=== PATIENT | female | born 1970 | race Hispanic/Latino ===

== ENCOUNTER 2021-07-23 07:01 | Inpatient (IN) | payer OTHER ==
[~2021-07-23] VITALS: Ht 157.5 cm; Wt 93.0 kg
[~2021-07-23 07:01] MED LIST: AMOX TR-K CLV1 EAC2 PO; QUINAPRIL HCL10 MG PO
[2021-07-23] MEDS ORDERED: KETOROLAC TROMETHAMINE 30 MG/ML VIAL IV STA (07:26)
[2021-07-23] MEDS ORDERED: Morphine 2mg Syringe 2 MG/ML SYR IV STA (07:26)
[2021-07-23] MEDS ORDERED: ONDANSETRON HCL INJ 2MG/ML 2ML 2 MG/ML VIAL IV STA ×2 (07:26→08:47)
[2021-07-23] MEDS ORDERED: SODIUM CHLORIDE 0.9% 1000ML 1,000 ML IV STA (07:26)
[2021-07-23 07:50] LABS: BASOPHILS # (AUTO) 0.1 (0.0-0.1); BASOPHILS % 0.8 % (0.0-1.0); EOSINOPHILS # (AUTO) 0.5 (0.0-0.4); EOSINOPHILS % 3.6 % (0.0-6.0); HEMATOCRIT 46.3 % (34.2-44.1); HEMOGLOBIN 14.9 g/dL (12.0-16.0); LYMPHOCYTES # (AUTO) 3.7 (1.0-3.2); LYMPHOCYTES % 28.3 % (18.0-39.1); MEAN CORPUSCULAR HGB CONC 32.2 g/dL (31-35); MEAN CORPUSCULAR VOLUME 90.1 fL (81-99); MONOCYTES # (AUTO) 0.8 (0.2-0.8); MONOCYTES % 5.8 % (4.4-11.3); NEUTROPHILS # (AUTO) 7.9 (2.1-6.9); NEUTROPHILS % 61.3 % (38.7-80.0); PLATELET COUNT 429 x10e3/uL (140-360); RED BLOOD COUNT 5.14 x10e6/uL (3.6-5.1); RED CELL DISTRIBUTION WIDTH 13.3 % (11.7-14.4)
[2021-07-23 08:02] LABS: BACTERIA,URINE FEW /HPF; CLARITY,URINE TURBID (CLEAR); COLOR,URINE BROWN (YELLOW); EPITHELIAL CELLS,URINE FEW /LPF; KETONES,URINE NEGATIVE (NEGATIVE); LEUKOCYTE ESTERASE ,URINE NEGATIVE (NEGATIVE); NITRITE,URINE NEGATIVE (NEGATIVE); PROTEIN,URINE DIPSTICK 2+ (NEGATIVE); RBC,URINE >50 /HPF (0-5); URINE UROBILINOGEN 0.2 mg/dL (0.2 - 1); WBC,URINE (MAN) 0-5 /HPF (0-5)
[2021-07-23 08:07] LABS: INR 0.92; PARTIAL THROMBOPLASTIN TIME 30.2 seconds (23.8-35.5); PROTHROMBIN TIME 13.2 seconds (11.9-14.5)
[2021-07-23 08:09] LABS: ALANINE AMINOTRANSFERASE 29 IU/L (0-55); ALBUMIN 3.7 g/dL (3.5-5.0); ALBUMIN/GLOBULIN RATIO 0.8 (0.8-2.0); ALKALINE PHOSPHATASE 106 IU/L (40-150); ANION GAP 15.7 mmol/L (8-16); BLOOD UREA NITROGEN 16 mg/dL (7-26); BUN/CREATININE RATIO 17 (6-25); CALCIUM 10.3 mg/dL (8.4-10.2); CARBON DIOXIDE 27 mmol/L (22-29); CHLORIDE 102 mmol/L (98-107); CREATINE KINASE 65 IU/L (29-168); CREATININE, SERUM 0.92 mg/dL (0.57-1.11); EST GLOMERULAR FILTRATION RATE 64 ML/MIN (60-); GLUCOSE 106 mg/dL (74-118); LIPASE 43 U/L (8-78); POTASSIUM 3.7 mmol/L (3.5-5.1); SODIUM 141 mmol/L (136-145)
[2021-07-23] MEDS ORDERED: Morphine 4mg Syringe 4 MG/ML INJ IV STA (08:16)
[2021-07-23] MEDS ORDERED: HYDROMORPHONE 1MG/1ML INJ IV STA (08:47)
[2021-07-23] MEDS ORDERED: TAMSULOSIN HCL 0.4 MG CAP PO NR (09:30)
[2021-07-23] MEDS: SODIUM CHLORIDE 0.9% 1000ML 1,000 ML IV SCH ×2 (09:52→19:30)
[2021-07-23 14:52] VITALS: BP 142/80
[2021-07-23 14:58] VITALS: BP 142/80
[2021-07-23 15:39] VITALS: BP 107/69
[2021-07-23] MEDS ORDERED: DEXTROSE 50% SYRINGE 50 ML IV PRN (16:15)
[2021-07-23] MEDS: INSULIN LISPRO 100 UNIT/1 ML 3ML VIAL SQ SCH ×2 (16:30→20:41)
[2021-07-23] MEDS ORDERED: OZEMPIC0.25 MG/0. SC (17:20)
[2021-07-23] MEDS ORDERED: HYDROCHLOROTH12.5 MG PO (17:23)
[2021-07-23] MEDS ORDERED: MOBIC15 MG PO (17:23)
[2021-07-23] MEDS ORDERED: ACTOS15 MG PO (17:23)
[2021-07-23] MEDS ORDERED: LOSARTAN POTAS100 MG PO (17:23)
[2021-07-23] MEDS ORDERED: WELLBUTRIN XL300 MG PO (17:23)
[2021-07-23] MEDS ORDERED: TEMAZEPAM 7.5 MG CAP PO PRN (17:30)
[2021-07-23] MEDS ORDERED: METOPROLOL TARTRATE INJ 1 MG/ML VIAL IV PRN (17:30)
[2021-07-23] MEDS ORDERED: ACETAMINOPHEN 325 MG TAB PO PRN (17:30)
[2021-07-23] MEDS ORDERED: POLYETHYLENE GLYCOL 3350 17 GM PACK PO PRN (17:30)
[2021-07-23] MEDS: ONDANSETRON HCL INJ 2MG/ML 2ML 2 MG/ML VIAL IV PRN (17:37)
[2021-07-23] MEDS: DOCUSATE SODIUM 100 MG CAP PO SCH (18:28)
[2021-07-23] MEDS: FAMOTIDINE 20 MG/2 ML VIAL IV SCH (18:28)
[2021-07-23 20:00] VITALS: BP 92/56
[2021-07-23] MEDS ORDERED: TAMSULOSIN HCL 0.4 MG CAP PO SCH (21:00)
[2021-07-23] MEDS: HYDROMORPHONE 1MG/1ML INJ IV PRN (21:08)
[2021-07-24] VITALS (7 sets, daily range): BP systolic 89–110; BP diastolic 56–70
[2021-07-24] MEDS: SODIUM CHLORIDE 0.9% 1000ML 1,000 ML IV SCH ×3 (06:06→21:56)
[2021-07-24] MEDS: HYDROMORPHONE 1MG/1ML INJ IV PRN (06:15)
[2021-07-24 06:48] LABS: ANION GAP 15.3 mmol/L (8-16); CREATININE, SERUM 1.16 mg/dL (0.57-1.11); POTASSIUM 4.3 mmol/L (3.5-5.1)
[2021-07-24 07:03] LABS: CHOL/HDL RATIO 3.7 (3.0-3.6); PHOSPHORUS 3.1 MG/DL (2.3-4.7)
[2021-07-24 07:21] LABS: BASOPHILS # (AUTO) 0.1 (0.0-0.1); BASOPHILS % 0.5 % (0.0-1.0); HEMATOCRIT 37.2 % (34.2-44.1); HEMOGLOBIN 12.3 g/dL (12.0-16.0); LYMPHOCYTES # (AUTO) 1.2 (1.0-3.2); LYMPHOCYTES % 4.3 % (18.0-39.1); MEAN CORPUSCULAR HEMOGLOBIN 29.2 pg (28-32); MEAN CORPUSCULAR HGB CONC 33.1 g/dL (31-35); MEAN CORPUSCULAR VOLUME 88.4 fL (81-99); MONOCYTES # (AUTO) 0.9 (0.2-0.8); MONOCYTES % 3.1 % (4.4-11.3); NEUTROPHILS # (AUTO) 25.9 (2.1-6.9); NEUTROPHILS % 90.2 % (38.7-80.0); PLATELET COUNT 207 x10e3/uL (140-360); RED BLOOD COUNT 4.21 x10e6/uL (3.6-5.1); RED CELL DISTRIBUTION WIDTH 13.6 % (11.7-14.4)
[2021-07-24 07:24] LABS: THYROID STIMULATING HORMONE 0.437 uIU/mL (0.350-4.940)
[2021-07-24] MEDS: INSULIN LISPRO 100 UNIT/1 ML 3ML VIAL SQ SCH ×4 (07:30→20:54)
[2021-07-24] MEDS ORDERED: MAGNESIUM SULFATE 2GM/50ML 50 ML IV ONE (07:30)
[2021-07-24] MEDS: ONDANSETRON HCL INJ 2MG/ML 2ML 2 MG/ML VIAL IV PRN (08:01)
[2021-07-24] MEDS: DOCUSATE SODIUM 100 MG CAP PO SCH ×2 (08:56→16:55)
[2021-07-24] MEDS: FAMOTIDINE 20 MG/2 ML VIAL IV SCH ×2 (08:56→16:55)
[2021-07-24] MEDS: BUPROPION HCL 150 MG TABCR PO SCH (08:56)
[2021-07-24] MEDS: LOSARTAN POTASSIUM 100 MG TAB PO SCH (08:57)
[2021-07-24 09:10] LABS: BAND NEUTROPHILS % (MANUAL) 18 %; LYMPHOCYTES % (MANUAL) 3 % (19-48); METAMYELOCYTES % (MANUAL) 4 % (0-0); MYELOCYTES % (MANUAL) 1 % (0-0); NEUTROPHILS % (MANUAL) 73 % (40-74); PLATELET ESTIMATE ADEQUATE; PLATELET MORPHOLOGY COMMENT NORMAL; RBC MORPHOLOGY COMMENT NORMAL
[2021-07-24] MEDS ORDERED: Vancomycin IV 1 GM in SODIUM CHLORIDE 0.9% 250ML 250 ML IV STA (11:26)
[2021-07-24] MEDS: TAMSULOSIN HCL 0.4 MG CAP PO SCH (12:13)
[2021-07-24] MEDS: ACETAMIN/BUTALBITAL/CAFFEINE TAB PO PRN (16:41)
[2021-07-24 17:22] LABS: BASOPHILS # (AUTO) 0.2 (0.0-0.1); BASOPHILS % 0.7 % (0.0-1.0); EOSINOPHILS # (AUTO) 0.2 (0.0-0.4); EOSINOPHILS % 0.7 % (0.0-6.0); HEMATOCRIT 37.6 % (34.2-44.1); HEMOGLOBIN 11.8 g/dL (12.0-16.0); LYMPHOCYTES # (AUTO) 1.6 (1.0-3.2); LYMPHOCYTES % 6.8 % (18.0-39.1); MEAN CORPUSCULAR HEMOGLOBIN 28.8 pg (28-32); MEAN CORPUSCULAR HGB CONC 31.4 g/dL (31-35); MEAN CORPUSCULAR VOLUME 91.7 fL (81-99); MONOCYTES # (AUTO) 0.7 (0.2-0.8); MONOCYTES % 2.8 % (4.4-11.3); NEUTROPHILS # (AUTO) 20.7 (2.1-6.9); NEUTROPHILS % 85.6 % (38.7-80.0); PLATELET COUNT 200 x10e3/uL (140-360); RED CELL DISTRIBUTION WIDTH 13.7 % (11.7-14.4)
[2021-07-24 18:20] LABS: BAND NEUTROPHILS % (MANUAL) 45 %; LYMPHOCYTES % (MANUAL) 5 % (19-48); NEUTROPHILS % (MANUAL) 50 % (40-74); PLATELET ESTIMATE ADEQUATE; PLATELET MORPHOLOGY COMMENT NORMAL; RBC MORPHOLOGY COMMENT NORMAL
[2021-07-25] VITALS (7 sets, daily range): BP systolic 103–130; BP diastolic 53–82
[2021-07-25] MEDS: HYDROMORPHONE 1MG/1ML INJ IV PRN ×3 (00:08→21:16)
[2021-07-25] MEDS: TAMSULOSIN HCL 0.4 MG CAP PO SCH ×3 (00:08→21:05)
[2021-07-25] MEDS: ONDANSETRON HCL INJ 2MG/ML 2ML 2 MG/ML VIAL IV PRN ×3 (00:09→21:16)
[2021-07-25] MEDS: SODIUM CHLORIDE 0.9% 1000ML 1,000 ML IV SCH ×4 (04:46→23:34)
[2021-07-25 05:38] LABS: BASOPHILS # (AUTO) 0.1 (0.0-0.1); BASOPHILS % 0.4 % (0.0-1.0); EOSINOPHILS # (AUTO) 0.4 (0.0-0.4); EOSINOPHILS % 2.3 % (0.0-6.0); HEMATOCRIT 34.8 % (34.2-44.1); HEMOGLOBIN 11.1 g/dL (12.0-16.0); LYMPHOCYTES # (AUTO) 1.5 (1.0-3.2); LYMPHOCYTES % 8.9 % (18.0-39.1); MEAN CORPUSCULAR HEMOGLOBIN 28.9 pg (28-32); MEAN CORPUSCULAR HGB CONC 31.9 g/dL (31-35); MEAN CORPUSCULAR VOLUME 90.6 fL (81-99); MONOCYTES # (AUTO) 0.5 (0.2-0.8); MONOCYTES % 3.2 % (4.4-11.3); NEUTROPHILS # (AUTO) 14.1 (2.1-6.9); NEUTROPHILS % 84.1 % (38.7-80.0); PLATELET COUNT 189 x10e3/uL (140-360); RED BLOOD COUNT 3.84 x10e6/uL (3.6-5.1); RED CELL DISTRIBUTION WIDTH 13.8 % (11.7-14.4)
[2021-07-25 05:55] LABS: ANION GAP 10.4 mmol/L (8-16); CALCIUM 8.5 mg/dL (8.4-10.2); CREATININE, SERUM 0.86 mg/dL (0.57-1.11); POTASSIUM 3.4 mmol/L (3.5-5.1)
[2021-07-25 06:24] LABS: MAGNESIUM 1.8 MG/DL (1.3-2.1); PHOSPHORUS 1.7 MG/DL (2.3-4.7)
[2021-07-25] MEDS: INSULIN LISPRO 100 UNIT/1 ML 3ML VIAL SQ SCH ×4 (07:30→21:00)
[2021-07-25] MEDS ORDERED: TEMAZEPAM 15 MG CAP PO PRN (08:45)
[2021-07-25] MEDS: DOCUSATE SODIUM 100 MG CAP PO SCH ×2 (09:00→21:05)
[2021-07-25] MEDS: BUPROPION HCL 150 MG TABCR PO SCH (09:00)
[2021-07-25] MEDS: LOSARTAN POTASSIUM 100 MG TAB PO SCH (09:00)
[2021-07-25] MEDS: FAMOTIDINE 20 MG/2 ML VIAL IV SCH ×2 (09:00→21:05)
[2021-07-25] MEDS: ACETAMIN/BUTALBITAL/CAFFEINE TAB PO PRN (09:20)
[2021-07-25] MEDS ORDERED: POTASSIUM CHLORIDE 10MEQ EA PO ONE (11:30)
[2021-07-25] MEDS ORDERED: SUMATRIPTAN SUCCINATE 25 MG TAB PO ONE (12:00)
[2021-07-26] VITALS (7 sets, daily range): BP systolic 102–137; BP diastolic 67–84
[2021-07-26 05:06] LABS: BASOPHILS # (AUTO) 0.1 (0.0-0.1); BASOPHILS % 0.5 % (0.0-1.0); EOSINOPHILS # (AUTO) 0.4 (0.0-0.4); HEMATOCRIT 38.9 % (34.2-44.1); HEMOGLOBIN 11.7 g/dL (12.0-16.0); LYMPHOCYTES # (AUTO) 2.2 (1.0-3.2); LYMPHOCYTES % 23.3 % (18.0-39.1); MEAN CORPUSCULAR HEMOGLOBIN 28.8 pg (28-32); MEAN CORPUSCULAR HGB CONC 30.1 g/dL (31-35); MEAN CORPUSCULAR VOLUME 95.8 fL (81-99); MONOCYTES # (AUTO) 0.5 (0.2-0.8); MONOCYTES % 5.5 % (4.4-11.3); NEUTROPHILS # (AUTO) 6.3 (2.1-6.9); NEUTROPHILS % 66.1 % (38.7-80.0); PLATELET COUNT 130 x10e3/uL (140-360); RED BLOOD COUNT 4.06 x10e6/uL (3.6-5.1)
[2021-07-26 05:28] LABS: ANION GAP 11.9 mmol/L (8-16); CALCIUM 8.1 mg/dL (8.4-10.2); CREATININE, SERUM 0.81 mg/dL (0.57-1.11); POTASSIUM 3.9 mmol/L (3.5-5.1)
[2021-07-26] MEDS: SODIUM CHLORIDE 0.9% 1000ML 1,000 ML IV SCH ×3 (05:33→23:04)
[2021-07-26] MEDS: INSULIN LISPRO 100 UNIT/1 ML 3ML VIAL SQ SCH ×4 (07:26→21:00)
[2021-07-26] MEDS: DOCUSATE SODIUM 100 MG CAP PO SCH ×2 (07:46→21:00)
[2021-07-26] MEDS: HYDROMORPHONE 1MG/1ML INJ IV PRN ×2 (08:40→21:40)
[2021-07-26] MEDS: FAMOTIDINE 20 MG/2 ML VIAL IV SCH ×2 (08:59→21:36)
[2021-07-26] MEDS: LOSARTAN POTASSIUM 100 MG TAB PO SCH (09:00)
[2021-07-26] MEDS: BUPROPION HCL 150 MG TABCR PO SCH (09:00)
[2021-07-26] MEDS: TAMSULOSIN HCL 0.4 MG CAP PO SCH ×2 (09:00→21:40)
[2021-07-26] MEDS ORDERED: SODIUM CHLORIDE 0.9% 250ML 250 ML ONE (15:20)
[2021-07-26] MEDS ORDERED: IOPAMIDOL 370 MG/ML 100 ML INFUS..BTL INJ ONE (15:20)
[2021-07-26] MEDS: ACETAMIN/BUTALBITAL/CAFFEINE TAB PO PRN (16:14)
[2021-07-26] MEDS: ONDANSETRON HCL INJ 2MG/ML 2ML 2 MG/ML VIAL IV PRN (21:39)
[2021-07-27 00:04] VITALS: BP 115/61
[2021-07-27 00:41] VITALS: BP 126/67
[2021-07-27 04:00] VITALS: BP 108/67
[2021-07-27] MEDS: SODIUM CHLORIDE 0.9% 1000ML 1,000 ML IV SCH ×2 (05:57→11:55)
[2021-07-27] MEDS: ACETAMIN/BUTALBITAL/CAFFEINE TAB PO PRN (05:58)
[2021-07-27] MEDS: INSULIN LISPRO 100 UNIT/1 ML 3ML VIAL SQ SCH ×2 (07:30→11:28)
[2021-07-27 08:00] VITALS: BP 135/71
[2021-07-27 08:27] VITALS: BP 135/71
[2021-07-27] MEDS: FAMOTIDINE 20 MG/2 ML VIAL IV SCH (08:45)
[2021-07-27] MEDS: LOSARTAN POTASSIUM 100 MG TAB PO SCH (08:45)
[2021-07-27] MEDS: TAMSULOSIN HCL 0.4 MG CAP PO SCH (08:45)
[2021-07-27] MEDS: DOCUSATE SODIUM 100 MG CAP PO SCH (08:45)
[2021-07-27] MEDS: BUPROPION HCL 150 MG TABCR PO SCH (08:45)
[2021-07-27 11:27] VITALS: BP 138/88
[2021-07-27] MEDS ORDERED: ceftin PO (13:39)
[2021-07-27] MEDS ORDERED: ONDANSETRON HCL 4 MG ORAL DISINTEGRATING TAB PO PRN (14:00)
[2021-07-27] MEDS ORDERED: ABREVA2 GM TP (14:30)
[2021-07-27] MEDS ORDERED: FAMOTIDINE 20 MG TAB PO SCH (21:00)
== END 2021-07-27 14:32 | disposition home or self-care (01) | DRG 872 ==
LOC: ER 07:08 → ERHOLD 09:30 → MED/SURG 14:22
PROVIDERS: ADMIT Internal Medicine; ATTEND Internal Medicine
DX: A41.51 Sepsis due to Escherichia coli [E. coli] (principal); N13.6 Pyonephrosis; N17.9 Acute kidney failure, unspecified; E86.0 Dehydration; E11.9 Type 2 diabetes mellitus without complications; I10 Essential (primary) hypertension; F41.9 Anxiety disorder, unspecified; F32.A Depression, unspecified; E83.42 Hypomagnesemia; E66.9 Obesity, unspecified; E78.5 Hyperlipidemia, unspecified; K42.9 Umbilical hernia without obstruction or gangrene; G43.909 Migraine, unspecified, not intractable, without status migrainosus; Z87.442 Personal history of urinary calculi; Z20.822 Contact with and (suspected) exposure to COVID-19; Z68.37 Body mass index [BMI] 37.0-37.9, adult
CPT/HCPCS: 36415; 36568; 74018; 74176; 74178; 80048; 80053; 80061; 81001; 82550; 82553; 83036; 83605; 83690; 83735; 84100; 84443; 84484; 85025; 85610; 85730; 87040; 87086; 87186; 88300; 93005; 94799; 99284; J0696; J1170; J1885; J2270; J2405; J2543; J3370; J3475; J7030; J7050; Q9967; U0002